=== PATIENT | female | born 2000 | race Hispanic/Latino ===

== ENCOUNTER 2021-10-20 21:07 | Emergency (ER) | payer OTHER ==
[2021-10-20] MEDS ORDERED: Acetaminophen 500 MG TAB ONE (21:32)
== END 2021-10-21 00:02 | disposition home or self-care (01) ==
LOC: CSHERS 21:07
DX: N93.9 Abnormal uterine and vaginal bleeding, unspecified (principal)
CPT/HCPCS: 36415; 76856; 84702; 86900; 86901